=== PATIENT | male | born 1965 | race Caucasian/White ===

== ENCOUNTER 2021-07-11 13:24 | Emergency (ER) | payer OTHER, SELFPAY ==
--- NOTE | ~2021-07-11 | XR_ITS ---
EXAMINATION: XR chest 2V DATE: 07/11/2021 17:45 INDICATION: Shortness of breath. TECHNIQUE: Frontal and lateral views of the chest were obtained. COMPARISON: Chest 2 views 06/05/2014 FINDINGS: The chest demonstrates clear lungs without pneumonia, pleural effusion, or pneumothorax. Th e heart size is normal. IMPRESSION: 1. No acute cardiopulmonary disease. Reviewed, dictated and finalized at location A. DIRECTOR
[2021-07-11 13:27] VITALS: BP 180/112; PULSE 98; RESP 14; TEMP 37; O2SAT 97
--- NOTE | 2021-07-11 15:03 | ECG_ITS ---
Measurements Intervals [place] Rate: 81 P: 50 KS: 176 QRS: 17 QRSD: 88 T: 78 QT: 355 QTc: 413 Interpretive Statements SINUS RHYTHM POSSIBLE LEFT ATRIAL ENLARGEMENT BORDERLINE R WAVE PROGRESSION, ANTERIOR LEADS BORDERLINE T WAVE ABNORMALITY- HIGH LATERAL LEADS BASELINE WANDER- V2 BORDERLINE ECG Electronically Signed On 07-11-2021 20:15:24 [employer] by Anton Whitt D.O.
[2021-07-11 17:30] VITALS: BP 193/124; PULSE 82; RESP 20; O2SAT 98
--- NOTE | 2021-07-11 17:38 | ED.GENADULT ---
HPI - General Adult General Chief complaint: Recheck/Abnormal Lab/Rx Stated complaint: Chest pain Time Seen by Provider: 07/11/21 17:26 Source: patient, RN notes reviewed and old records reviewed Mode of arrival: ambulatory Limitations: no limitations History of Present Illness HPI narrative: This is a 56 year old male who presents for evaluation of hypertension. Patient states his blood pressure was noted to be high yesterday at the dentist office. His blood pressure did decreased over time but it was still elevated. He continued to monitor his blood pressure last night and today. His blood pressure was high so he came to ER. HE is not having any acute issues regarding his blood pressure. He does reports noticing shortness of breath over past few months when walking up steps. His reports he complains of funny feeling in his chest for while but he denies chest pain. He also denies headaches or blurred vision. He has not seen a doctor in years or monitored his blood pressure prior to yesterday. He states he was admitted to hospital in 2013 for high blood pressure and chest pain . He had negative stress test . He has not followed with PCP since to determine if he needed to be started on antihypertensives. Related Data Allergies Allergy/AdvReac Type Severity Reaction Status Date / Time Penicillins Allergy Unknown Unknown Verified 07/11/21 18:37 Review of Systems Review of Systems: All systems reviewed & are unremarkable except as noted in HPI and below PMFSH Social History Social History (Updated 07/11/21 @ 17:44 by Yvette Love MD) Smoking status: Never smoker Alcohol intake: never Substance use: never Exam Narrative: GENERAL: Well-appearing, well-nourished, and in no acute distress. HEAD: Normocephalic, atraumatic EYES: PERRLA and EOMI, conjunctiva clear without discharge THROAT:Mucous membranes moist, Oropharynx normal without erythema, exudate, peritonsillar swelling or fluctuance NECK: Supple, without lymphadenopathy or mass RESPIRATORY: No respiratory distress, Airway patent, Respirations non-labored, Clear to auscultation without rales, rhonchi or wheeze HEART: Regular rate and rhythm. No murmur heard. Normal peripheral pulses. ABDOMEN: Soft, nontender, nondistended, normal active bowel sounds. No masses. No rebound or guarding, No organomegaly. EXTREMITIES: No edema, normal strength with full range of motion. SKIN: Warm, dry, normal color without rash NEURO: Alert and oriented x3. CN 2-12 grossly intact. No focal deficits. PSYCH: Normal mood and affect. Course Reevaluation(s) Reevaluation #1: Patient is asymptomatic so he will be discharged. BP 158/108. He will given dose of amlodipine and I have stressed that he needs to follow up with in 1 week Date: 07/11/21 Time: 18:34 Vital Signs Vital signs: Vital Signs Temperature 98.6 F 07/11/21 13:27 Pulse Rate 98 07/11/21 13:27 Respiratory Rate 14 07/11/21 13:27 Blood Pressure 180/112 H 07/11/21 13:27 Pulse Oximetry 97 07/11/21 13:27 Temperature 98.6 F 07/11/21 13:27 Pulse Rate 95 07/11/21 18:36 Respiratory Rate 18 07/11/21 18:36 Blood Pressure 158/108 H 07/11/21 18:36 Pulse Oximetry 98 07/11/21 18:36 Medical Decision Making Vital Signs Vital Signs: Vital Signs Temperature 98.6 F 07/11/21 13:27 Pulse Rate 98 07/11/21 13:27 Respiratory Rate 14 07/11/21 13:27 Blood Pressure 180/112 H 07/11/21 13:27 Pulse Oximetry 97 07/11/21 13:27 Temperature 98.6 F 07/11/21 13:27 Pulse Rate 95 07/11/21 18:36 Respiratory Rate 18 07/11/21 18:36 Blood Pressure 158/108 H 07/11/21 18:36 Pulse Oximetry 98 07/11/21 18:36 Lab Data Lab results reviewed: Yes I reviewed the patient's lab results. Result diagrams: 07/11/21 17:49 07/11/21 17:49 Labs: Lab Results 07/11/21 07/11/21 07/11/21 Range/Units 17:44 17:49 17:49 WBC 8.4 (4.5-10.0) K
[2021-07-11 17:58] VITALS: BP 182/115; PULSE 82; RESP 16; O2SAT 99
[2021-07-11 18:00] VITALS: BP 159/110; PULSE 87; RESP 16; O2SAT 98
[2021-07-11 18:01] LABS: Basophils Absolute Auto 0.1 K/mm3 (0.0-0.1); Basophils Percent Auto 0.7 % (0.2-1.2); Eosinophils Absolute Auto 0.4 K/mm3 (0-0.3); Eosinophils Percent Auto 4.1 % (0-4.4); Hematocrit 44.5 % (42.0-52.0); Hemoglobin 15.3 g/dL (14.0-18.0); Immature Granulocyte Absolute 0.03 K/mm3 (0.00-0.031); Immature Granulocyte Percent A 0.4 % (0-0.5); Lymphocytes Percent Auto 27.3 % (18.3-44.2); Mean Corpuscular HGB Conc 34.4 g/dl (32-36); Mean Corpuscular Hemoglobin 32.6 pg (26-34); Mean Corpuscular Volume 94.7 fl (80-100); Mean Platelet Volume 10.6 fl (7.4-10.4); Monocytes Percent Auto 12.3 % (2.6-8.5); Neutrophils Absolute Auto 4.7 K/mm3 (1.3-6.7); Neutrophils Percent Auto 55.2 % (45.5-73.1); Platelet Count Result 184 k/mm3 (150-375); Red Cell Distribution Width 12.5 % (11.5-14.5); White Blood Count 8.4 K/mm3 (4.5-10.0)
[2021-07-11 18:15] LABS: Alanine Aminotransferase 81 U/L (4-50); Albumin Level 4.4 g/dL (3.5-5.1); Alkaline Phosphatase 63 U/L (38-126); Anion Gap 11 mmol/L (8-16); Aspartate Amino Transferase 45 U/L (17-59); Bilirubin,Total 0.5 mg/dL (0.2-1.3); Blood Urea Nitrogen 16 mg/dL (9-20); Calcium 9.7 mg/dL (8.4-10.2); Carbon Dioxide 29 mmol/L (22-30); Chloride 103 mmol/L (98-107); Estimated CRCL calculation 80 ml/min; Estimated Glomerular Filt Rate > 60; Glucose 90 mg/dL (65-110); Sodium 143 mmol/L (137-145)
[2021-07-11 18:25] LABS: Prothrombin Time 12.7 Seconds (11.1-14.7)
[2021-07-11 18:26] LABS: Partial Thromboplastin Time 25.4 SECONDS (22.3-36.8)
[2021-07-11 18:27] LABS: NT Pro B Type Natriuretic Pept 57 pg/mL (5-100); Troponin I < 0.012 ng/mL (0.000-0.034)
[2021-07-11] MEDS: amLODIPine BESYLATE 5 MG TABLET PO (18:35)
[2021-07-11 18:36] VITALS: BP 158/108; PULSE 95; RESP 18; O2SAT 98
== END 2021-07-11 19:08 | disposition home or self-care (01) ==
PROVIDERS: Emergency Provider General Practice
DX: I10 Essential (primary) hypertension (principal); R06.02 Shortness of breath; Z88.0 Allergy status to penicillin
CPT/HCPCS: 36415; 71046; 80053; 83880; 84443; 84484; 85025; 85610; 85730; 93005; 99284; A9270